=== PATIENT | male | born 2005 | race Caucasian/White ===

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

== ENCOUNTER 2023-07-20 14:31 | Emergency (ER) | payer MEDICAID ==
[~2023-07-20] VITALS: Ht 175.3 cm; Wt 63.6 kg
[2023-07-20 14:41] VITALS: BP 112/67; PULSE 86; RESP 16; TEMP 98
== END 2023-07-20 16:19 | disposition home or self-care (01) ==
LOC: EMS 14:55
DX: S52.602A Unspecified fracture of lower end of left ulna, initial encounter for closed fracture (principal); F31.9 Bipolar disorder, unspecified; F17.210 Nicotine dependence, cigarettes, uncomplicated; F12.90 Cannabis use, unspecified, uncomplicated; X58.XXXA Exposure to other specified factors, initial encounter; Y93.89 Activity, other specified; Y92.89 Other specified places as the place of occurrence of the external cause; Y99.8 Other external cause status
CPT/HCPCS: 99284; 73090-TC; 73100-TC; Z7502